=== PATIENT | male | born 1930 | race Caucasian/White ===

== ENCOUNTER 2016-06-13 22:59 | Inpatient (IN) | payer MEDICARE, OTHER ==
[~2016-06-13] VITALS: Ht 182.9 cm; Wt 68.0 kg
--- NOTE | ~2016-06-13 | OR ---
ADMIT: 06/13/2016 RM/LOC: 505 [facility] MR#: [id number] 2620 [facility] [address] [place], [place] [address] SADIE REJI BRADFORD [address] [place] [address] Operative/Delivery Room Report SEX: M AGE: 86 : 1930 SURGERY DATE: 06/23/2016 SURGEON: Ra Mancuso MD PREOPERATIVE DIAGNOSES: 1. Dysphagia. 2. Malnutrition. POSTOPERATIVE DIAGNOSES: 1. Dysphagia. 2. Malnutrition. PROCEDURE: Esophagogastroduodenoscopy with 20-Emirati percutaneous endoscopic gastrostomy tube insertion. ANESTHESIA: IV general. DESCRIPTION OF PROCEDURE: The patient was taken to the endoscopy suite and placed supine on his hospital cart. IV sedation was established. The upper endoscope was advanced through the oropharynx into the esophagus without difficulty. The scope was pushed under visualization of the stomach. Air was used to insufflate the stomach. The pylorus was intubated, and the first and second portions of the duodenum appeared normal. The scope was withdrawn to the stomach. Transillumination in the mid body of the stomach was easily performed in the left upper quadrant. One-to-one finger indentation was possible at this site as well. This area was prepped and draped in the standard surgical fashion. Local anesthetic was used to anesthetize the skin and subcutaneous tissue at the site. A 6 mm incision was made at this site. The stomach was then accessed with a large gauge Angiocath under endoscopic visualization. Guidewire was advanced via the Angiocath and grasped with the endoscopic snare. The wire was withdrawn through the oropharynx. A 20-Emirati gastrostomy tube was advanced over the wire and then pulled through the abdominal wall without difficulty. The plastic apparatus, clamp, and cap were placed on the tubing. The upper endoscope was advanced through the oropharynx, through the esophagus to the stomach and showed appropriate position of the mushroom of the catheter in the mid body of the stomach with no evidence of bleeding. Air was suctioned as the scope was withdrawn. The patient tolerated the procedure in stable condition and transferred to recovery. Ra Mancuso MD/ valente JOB #: [id number] CC: Rayo Hobbs, Attending Physician Rayo Hobbs, Family Physician
--- NOTE | 2016-06-14 04:20 | ER ---
ADMIT: 06/13/2016 RM/LOC: 505 [facility] MR#: [id number] [address] [facility] [address] [place], [place] [address] REJI NOEL [address] [place] [address] Emergency Room Report SEX: M AGE: 86 : 1930 DATE: 06/13/2016 CHIEF COMPLAINT: Left hip fracture. HISTORY OF PRESENT ILLNESS: The patient is an 86-year-old gentleman who lives at a nursing facility in [place], who states that he was walking at the facility today, dropped his lollipop and bent over to pick it up, subsequently lost his balance, fell backwards onto his left side. He had immediate pain in his left hip and was unable to get up and he was transferred to the [facility]. X-rays were done, which revealed a left intertrochanteric hip fracture. His only complaint was pain in his left hip and some in his left shoulder. He also had his left shoulder x-ray at the outside facility, which showed no fracture, and he had a CBC and BMP done, which were unremarkable. That facility spoke to Dr. Chavarria, our orthopedic surgeon on this evening and he was transferred to our facility. The patient has no other complaints at this time. REVIEW OF SYSTEMS: Ten-point review of systems is done and otherwise negative except as in HPI. PAST MEDICAL HISTORY: Significant for prostate cancer, high cholesterol, anemia, hypertension, chronic kidney disease, Parkinson's, ichthyosis, second degree AV block, glaucoma. PAST SURGICAL HISTORY: Had an ablation for what sounds like SVT. MEDICATIONS: See nurse's note. ALLERGIES: SEE NURSE'S NOTE. SOCIAL HISTORY: The patient used to smoke, but quit many years ago. Denies any drug or alcohol use. He lives in a mcc. PHYSICAL EXAMINATION: See T-sheet. LABORATORY DATA: Outside labs were reviewed. X-ray, did an AP and lateral x- ADMIT: 06/13/2016 RM/LOC: 505 [facility] MR#: [id number] [address] [address] REJI NOEL [address] [place] [address] Emergency Room Report SEX: M AGE: 86 : 1930 ray of patient's left hip as he did not come with a lateral film and it does demonstrate an intertrochanteric impacted left proximal femur/hip fracture. EMERGENCY DEPARTMENT COURSE: The patient's pain was fairly well controlled in the emergency department, was not requesting any pain medications. I spoke to Dr. Chavarria, who will be involved with the care of the patient, and I spoke to Dr. Hobbs, who will be admitting the patient. DIAGNOSES: 1. Left intertrochanteric hip fracture. 2. Left shoulder pain. 3. Parkinson's. Herberth Fitch MD/ valente JOB #: [id number] CC: Rayo Hobbs MD, Attending Physician Rayo Hobbs MD, Family Physician
--- NOTE | 2016-06-15 14:01 | HP ---
ADMIT: 06/13/2016 RM/LOC: [address] [facility] MR#: [id number] [address] [facility] [address] [place], [place] [address] REJI NOELJTBHARAT [address] [place] [address] History and Physical SEX: M AGE: 86 : 1930 DATE OF SERVICE: CHIEF COMPLAINT: Fall with left hip pain and hip fracture. HISTORY OF PRESENT ILLNESS: This is an 86-year-old gentleman, who is in a skilled nursing. His usual medical problems have been very stable and consist of a history of an AV block with SVT ablation, and Parkinson's disease with some orthostasis. Apparently, he had a ground level fall onto his left side and fractured his left hip. He did fall on his left shoulder with some pain there. X-rays from the outside facility are normal, showing no fracture. He was initially seen in [place]. Again, no active medical problems, but orthopedist's wished for me to admit for the hip fracture they will be doing surgery. PAST MEDICAL HISTORY: Includes: 1. Prostate cancer. 2. Hyperlipidemia. 3. Hypertension. 4. Chronic kidney disease. 5. Parkinson's. 6. History of an AV block. 7. History of SVT ablation. 8. Glaucoma. SOCIAL HISTORY: History of smoking, but none currently, quit many years ago. No alcohol. Lives in skilled nursing. FAMILY HISTORY: Reviewed but noncontributory. is in the room with him today. REVIEW OF SYSTEMS: Other complete review of systems obtained and negative except as above. PHYSICAL EXAMINATION: VITAL SIGNS: Temperature 97.0, pulse 63, respirations 16, blood pressure 130/69, oxygen saturation 92% on 2 L oxygen by nasal cannula. GENERAL: This is an elderly-appearing, 86-year-old gentleman, in no apparent distress. HEENT: Head is normocephalic and atraumatic. His pupils equal, round, and reactive to light and accommodation. He has glasses on. He prefers to keep one eye closed, although, it is early in the morning and I turned the lights on him. Throat is little bit dry, but clear. NECK: Supple. Trachea midline. Thyroid not palpable. HEART: Diminished, but regular rate and rhythm. LUNGS: Diminished bilaterally, but clear. ABDOMEN: Scaphoid, soft, without any tenderness. EXTREMITIES: Left lower extremity is externally rotated and shortened. Skin on his feet is extremely dry. MUSCULOSKELETAL: Changes of his feet include severe hammertoes bilaterally. ADMIT: 06/13/2016 RM/LOC: [address] [facility] MR#: [id number] [address] [address] REJI NOEL [address] [place] [address] History and Physical SEX: M AGE: 86 : 1930 He has dry crusty lesions on his feet bilaterally. He can move his upper extremities, however, he has bradykinesia and soft voice. LABORATORY DATA: White count 10.0, hemoglobin 13.0, and platelets of 140. BNP 141. Potassium 4.6, chloride 110, BUN 23, creatinine 1.2 for a GFR 55. X- ray showed left femoral neck angulated displaced fracture. ASSESSMENT: 1. Hip pain. 2. Left femoral neck fracture. 3. History of AV block with SVT ablation. 4. Parkinson's. 5. Ground level fall. PLAN: We will get an EKG for further evaluation of his heart rhythm. He will proceed with surgery as his mortality without surgery is much higher than with at this point. He has no active chest pain. No active shortness of breath. His functional status prior was quite diminished, so where as this is not an ideal situation. He has no active medical problems that would make surgery unadvisable at this time. He has a little bit hypoxic, and we will get a chest x-ray for further evaluation of that as well. Rayo Hobbs MD/ valente JOB #: [id number] CC: Rayo Hobbs, Attending Physician Rayo Hobbs, Family Physician
--- NOTE | 2016-06-20 15:16 | CO ---
ADMIT: 06/13/2016 RM/LOC: 505 [facility] MR#: [id number] [address] [place] [address] [place], [place] [address] REJI NOEL [address] [place] [address] Consultation SEX: M AGE: 86 : 1930 DATE OF CONSULTATION: 06/16/2016 ATTENDING PHYSICIAN: Rayo Hobbs CONSULTING PHYSICIAN: Marla Sood APRN TIME IN: 1430 hours. TIMEOUT: 1540 hours. REASON FOR CONSULTATION: Supportive care consultation was requested by Dr. Hobbs for discussion of goals for care specifically in regard to feeding tube. HISTORY OF PRESENT ILLNESS: Mr. Noel is a very pleasant 86-year-old male with history of Parkinson disease. It sounds like he has had some progressive decline over the course of the past year specifically. He did move to an assisted living facility from home back in March of 2016 per his 's report. He unfortunately sustained a fall on June 13 that resulted in a left hip fracture. He was transferred to [facility] for further treatment. Orthopedics did see the patient on June 14. He underwent a left hip short trochanteric fixation nail. The plan was actually for him to leave today to go to rehab back near his hometown of [place]; however, nursing noted that he was having swallowing issues; therefore, Speech Therapy was ordered to evaluate. He underwent an MBS today, which he unfortunately failed. At this time, the recommendation is for the patient to be n.p.o. Due to his complexities, supportive care consultation was requested to discuss feeding tube and goals for care. In terms of advanced directives, the patient's states that he does have a living will and healthcare [id number] paperwork. The patient's Pricilla Noel whose phone number is [phone] is his decision maker for medical purposes. Additionally, they have 4 children, who are involved with his care as well. He is a full code. Symptomatically, the patient denies complaints. He is very weak and tired. He sleeps the majority of our discussion. He denies pain or other discomfort. PAST MEDICAL HISTORY: Prostate cancer, hyperlipidemia, hypertension, chronic kidney disease, Parkinson disease, history of AV block, history of SVT ablation, and glaucoma. ALLERGIES: THE PATIENT HAS NO KNOWN MEDICATION ALLERGIES. CURRENT MEDICATIONS: Please see the patient's MAR for specific routes and dosages. His current medications are as follows: 1. Lopid. 2. Xarelto. 3. Senokot. ADMIT: 06/13/2016 RM/LOC: 505 [facility] MR#: [id number] [address] [address] REJI NOEL [address] [place] [address] Consultation SEX: M AGE: 86 : 1930 4. Lacri-Lube. 5. Lipitor. 6. Parlodel. 7. Mirapex. 8. Sinemet. 9. Benadryl. 10.Maalox. 11.Fleet Enema. 12.Milk of magnesia. 13.Phenergan. 14.Compazine. 15.Zofran. 16.Morphine. 17.Hydrocodone. 18.Tylenol. 19.Multivitamin. 20.Timoptic. 21.ProAmatine. 22.Lotemax. 23.Reglan. 24.Dulcolax. 25.Colace. 26.Nitrostat. SOCIAL HISTORY: The patient is . He has adult children. He is retired. He was living in assisted living. He does have a history of smoking, but does not currently smoke. He does not use alcohol. FAMILY HISTORY: Reviewed and noncontributory. FUNCTIONAL REVIEW: Prior to his hospital stay, he was living at an assisted living. He could get around with a Parkinson's walker. He did need some assistance with ADLs. It sounds like he could do some of his own dressing. His palliative performance scale prior to admission was around 50% to 60%. Currently, he is in bed. He is total care. Intake is minimal. He is very sleepy. His current palliative performance scale is 20% to 30%. REVIEW OF SYSTEMS: A 10-point review of systems was completed, and other than those pertinent positives and negatives mentioned the HPI, it is negative. PHYSICAL EXAMINATION: GENERAL: The patient is examined in the bed. He is lethargic. He is in no acute distress. VITAL SIGNS: Temperature 97.4, pulse 62, respirations 20, blood pressure 161/83, and oxygen 98% on 1 L per nasal cannula. HEENT: Head is normocephalic. Pupils are 3 mm bilaterally and brisk. Oral mucosa slightly dry. His dentures are loose fitting. He does have audible secretions at the back of his throat. NECK: Supple. ADMIT: 06/13/2016 RM/LOC: 505 [facility] MR#: [id number] [address] [address] REJI NOEL [address] [place] [address] Consultation SEX: M AGE: 86 : 1930 RESPIRATORY: Respirations are equal, nonlabored at rest. LUNGS: Diminished bilaterally in the bases. CARDIOVASCULAR: Rate rhythm regular without murmurs, rubs, or gallops. No edema noted. GASTROINTESTINAL: Soft, nontender. Bowel sounds are hypoactive. I do not see a bowel movement documented since admission. MUSCULOSKELETAL: Generalized weakness. INTEGUMENTARY: Skin turgor is fair. His skin is fragile. NEUROLOGIC: Fatigued, but oriented x3. He will follow sleep very easily during our conversation though and does not participate much. PSYCHIATRIC: Calm and cooperative. IMPRESSION: 1. Physical debility. 2. Dysphagia. 3. Lethargy. 4. Fatigue. 5. Malaise. 6. Left hip fracture status post nailing. 7. Parkinson disease. 8. History of atrioventricular block. 9. History of hypertension. 10.Palliative care. 11.The patient is a full code. PLAN OF TREATMENT: 1. I was able to have a long talk with the patient's spouse and the patient himself at the bedside. They also have 2 friends, who are present for discussion during my visit. We reviewed his overall status and goals for the time ahead. The patient's states that he was actually doing fairly well before falling and breaking his hip. We did discuss the outcomes of Speech Therapy's modified barium swallow today, and she is initially confused on the outcome of this test. She states that she is under the impression that he could eat whatever he wanted. I again reviewed the outcome of the MBS with the patient's and emphasized that he cannot tolerate any oral intake at this time due to his risk for aspiration. I did review his high risk for ongoing issues with aspiration secondary to his pneumonia and the recent stresses that he has been through in terms of surgery and anesthesia. She verbalizes understanding of this. We did review the burden versus benefit of an NG tube for short term tube feeding. At this time, she would like to proceed with the feeding tube through the nose on a short-term basis to see if he can regain any strength and swallow function while working with Speech Therapy in the days ahead. She is aware that the tube in the nose is short-term option and that he cannot go anywhere with this type of feeding tube. We did discuss long-term feeding tube placement such as a PEG tube, and the implications that would have for the patient. She understands that if his swallow does not improve in the days ahead that a ADMIT: 06/13/2016 RM/LOC: 505 [facility] MR#: [id number] 2620 [facility] [address] [place] [address] REJI NOEL [address] [place] [address] Consultation SEX: M AGE: 86 : 1930 decision will need to be made regarding long-term tube feeding. I very briefly reviewed the concept of pleasure eating and the hospice philosophy that often goes with this in the event that he continues to aspirate, and they do not wish to proceed with long-term tube feeding. At the end of the conversation, the patient's does verbalize understanding of our discussion and understands that we will proceed with the NG tube through the nose today. She agrees to ongoing discussions in the time ahead pending his status. I also was able to call the patient's daughter, Alexia Koehler, to update her on the discussion that I had with her mother and father and the plans for the feeding tube through the nose. She is supportive of this decision and also understands that should he not improve in terms of swallow that we will have to have a discussion regarding long-term feeding tube placement. 2. I did very briefly review code status with the patient's , and she states that the patient would want to go through resuscitative measures; however, he would not want to be on a machine long-term if it were to come to that. We will continue to discuss this in the time ahead pending his status. We would like to thank Dr. Hobbs for the invitation to participate in this patient's care. Total consultation time was 70 minutes from 1430 hours to 1540 hours with 40 minutes from 1445 hours to 1525 hours spent [id number] with the patient and his family or on the phone with his family discussing goals for care and providing counseling and support. We will continue to follow along. Both Dr. Hobbs and nursing were updated on the plan of care. Marla Sood APRN/ valente JOB #: [id number] CC: Rayo Hobbs, Attending Physician Rayo Hobbs, Family Physician
--- NOTE | 2016-06-22 20:44 | CO ---
ADMIT: 06/13/2016 RM/LOC: 505 [facility] MR#: [id number] [address] [facility] [address] [place], [place] [address] REJI NOEL [address] [place] [address] Consultation SEX: M AGE: 86 : 1930 DATE OF CONSULTATION: 06/21/2016 ATTENDING PHYSICIAN: Rayo Hobbs CONSULTING PHYSICIAN: Ra Mancuso MD ADDENDUM: Mr. Noel was seen in consultation for PEG tube insertion for management of nutritional supplementation during his recovery process. I discussed the detailed risks of that with Reji today and he wishes to proceed. I have reviewed Syd George's full documentation of consult. I am in agreement with his documented history, exam findings, impression, and plan. Ra Mancuso MD/ jeffreyl JOB #: [id number] CC: Rayo Hobbs, Attending Physician Rayo Hobbs, Family Physician
[2016-06-26] MEDS ORDERED: MIRAPEX DPS0.25 MG PO (14:08)
[2016-06-26] MEDS ORDERED: [UNRECOGNIZED DRUG - OTHER] PO (14:09)
[2016-06-26] MEDS ORDERED: DUONEB DPS3 ML IH (14:09)
[2016-06-26] MEDS ORDERED: THERAPEUTIC MUL1 TAB PO (14:09)
[2016-06-26] MEDS ORDERED: SINEMET 25-2501 EACH PO (14:09)
[2016-06-26] MEDS ORDERED: SENOKOT S1 TAB PO (14:09)
[2016-06-26] MEDS ORDERED: AUGMENTIN 250250 MG PO (14:10)
[2016-06-26] MEDS ORDERED: LOTEMAX5 ML OU (14:11)
[2016-06-26] MEDS ORDERED: LACRI-LUBE3.5 GM OU (14:11)
[2016-06-26] MEDS ORDERED: TEARS NATURAL D15 ML OU (14:11)
[2016-06-26] MEDS ORDERED: LIPITOR DPS20 MG GT (14:12)
[2016-06-26] MEDS ORDERED: PRO-AMATINE2.5 MG GT (14:12)
[2016-06-26] MEDS ORDERED: TIMOPTIC 0.5% DP5 ML OU (14:12)
[2016-06-26] MEDS ORDERED: LOPID DPS600 MG GT (14:12)
[2016-06-26] MEDS ORDERED: HYDROCODON-ACE1 EAC4 PO (14:13)
[2016-06-26] MEDS ORDERED: LOVENOX DP40 MG/0.4 SQ (14:13)
--- NOTE | 2016-06-30 11:05 | CO ---
ADMIT: 06/13/2016 RM/LOC: 505 [facility] MR#: [id number] 2620 [facility] [address] [place], [place] [address] REJI NOEL [address] [place] [address] Consultation SEX: M AGE: 86 : 1930 DATE OF CONSULTATION: 06/20/2016 ATTENDING PHYSICIAN: Rayo Hobbs CONSULTING PHYSICIAN: Ra Mancuso MD REASON FOR CONSULTATION: Dysphagia and failed barium swallow study. HISTORY OF PRESENT ILLNESS: Reji is a very pleasant 86-year-old male with history of Parkinson disease who has been admitted to the hospital because he suffered a fall at his residence resulting in a left hip fracture. He has thus undergone surgery for this and has been recovering in the hospital since. On Thursday, approximately 6 days ago, the patient developed some dysphagia where he had inability of swallowing his medications with water. As a result, Primary Medicine looked into this, achieved a barium swallow study to which he failed and recommended n.p.o. at this time. It is to my understanding that he has difficulty swallowing medications, liquids, and solids. The patient denies any pain, nausea, vomiting, or any bowel issues. He denies ever having prior upper endoscopy but he has colonoscopy less than 10 years ago. He does note to have a hiatal hernia. PAST MEDICAL HISTORY: Significant for Parkinson disease, hyperlipidemia, hiatal hernia, hypertension, prostate cancer, chronic kidney disease, AV block, and glaucoma. PAST SURGICAL HISTORY: 1. Bilateral open inguinal hernia repairs. 2. SVT ablation. 3. Defibrillator placement. ALLERGIES: NO KNOWN DRUG ALLERGIES. MEDICATIONS: Well documented in chart. FAMILY HISTORY: Noncontributory. The patient denies any family history of any bowel issues. SOCIAL HISTORY: Negative for tobacco, alcohol, or illicit drug use. REVIEW OF SYSTEMS: CONSTITUTIONAL: The patient denies any fever, chills, or night sweats. MUSCULOSKELETAL: Patient ambulates with a walker. Otherwise denies any ambulation problems, joint pain, neck stiffness, or back issues. The rest of comprehensive 10-point review of systems was performed and all other systems are negative. PHYSICAL EXAMINATION: GENERAL: The patient is in no acute distress. He is alert and oriented. HEENT: Head is normocephalic and atraumatic. EOMs are intact. Conjunctivae ADMIT: 06/13/2016 RM/LOC: 505 [facility] MR#: [id number] [address] [address] REJI NOEL [address] [place] [address] Consultation SEX: M AGE: 86 : 1930 free of icterus, erythema, or pallor. Pinnae free of deformities. Nose, midline. No tracheal deviation. Increased saliva in his mouth with inability to swallow noted upon inspection. NECK: Supple. SKIN: Negative for jaundice, clubbing, edema, pallor, or cyanosis. LUNGS: Normal respiratory effort. HEART: Regular rate and rhythm. Distal pulses intact. ABDOMEN: Soft, nondistended, and nontender. NEURO: Grossly intact. ASSESSMENT: Dysphagia. PLAN: The plan is to have the patient undergo EGD with PEG tube placement on Thursday performed by Dr. Mancuso. I discussed risks, alternatives, benefits, and complications of endoscopy with the patient and his family who were present during my whole assessment. They are in agreement of this plan, had all their questions answered and would like to proceed. I will get him on the schedule, get him consented for the procedure. His Xarelto has been discontinued but he is on Lovenox, hold Lovenox prior and accomplish this Thursday. Thank you for the consultation of this patient. PAUL Pearson / Ra Mancuso MD / valente JOB #: [id number] CC: Rayo Hobbs, Attending Physician Rayo Hobbs, Family Physician
--- NOTE | 2016-07-01 06:50 | DS ---
ADMIT: 06/13/2016 RM/LOC: 505 [facility] MR#: [id number] [facility] [address] [place], [place] [address] REJI NOELCHANCE [address] [place] [address] General Discharge Summary SEX: M AGE: 86 : 1930 ADMISSION DATE: 06/13/2016 DISCHARGE DATE: 06/25/2016 FINAL DIAGNOSES: 1. Hip fracture status post surgery. 2. Dysphagia. 3. Malnutrition. 4. Parkinson disease. 5. Aspiration pneumonia. REASON FOR ADMISSION: This is an 86-year-old gentleman with known Parkinson's, had a fall and sustained a hip fracture. Surgery for his hip was done on 06/14 without incident. After the patient had his surgery, he had some low pressures. Midodrine was started and he seemed to do much better even after some fluids as well. He had some known orthostatic hypotension. He had some choking on food on the . Speech Therapy evaluation along with modified barium swallow showed that he had severe difficulties, so therefore we had Supportive Care see him. They felt that temporary feeding tube would be reasonable. He had an NG placed and he did fine with this. I did treat him for his weakness, postop care, and dysphagia. Ultimately for longer term benefits, he felt they would want a PEG tube, so this was placed instead, and after that, he continued to do fine. He was still quite weak but gradually did improve throughout his time in the hospital. By the , he had been accepted into a skilled care facility at [facility] in [place], so this was arranged and he was discharged up there. So, he was set up to [place] and rehab with followup with Dr. Chavarria per their schedule. DISCHARGE MEDICATIONS: 1. Mirapex 0.25 mg t.i.d. 2. Parlodel 1.25 mg b.i.d. 3. Senokot S one tab b.i.d. 4. Sinemet 25/250 mg one q.i.d. 5. PreserVision one b.i.d. 6. DuoNebs q.i.d. 7. Augmentin 875 mg b.i.d. for eight days. 8. Lacri-Lube 0.5 inch to lids at bedtime. 9. Lotemax one drop OU daily. ADMIT: 06/13/2016 RM/LOC: 505 [facility] MR#: [id number] [facility] [address] [place], [place] [address] REJI NOEL [address] [place] [address] General Discharge Summary SEX: M AGE: 86 : 1930 10.Natural Tears two drops OU q.i.d. and p.r.n. 11.Timoptic eyedrops two drops OU daily. 12.Lipitor 20 mg daily. 13.Lopid 600 mg daily. 14.Primatene . 15.Lovenox 40 mg daily subcutaneous until weightbearing. 16.Hydrocodone 5/325 one q.4 p.r.n. Tube feeding per Nutrition recommendations. He should have a BMP in 1 week to assure he is getting enough free water. He should have PT, OT, and Speech Therapy and see Dr. Chavarria in [place] on June 26, see his PCP in 1 week's time. Rayo Hobbs MD/ valente JOB #: [id number] CC: Rayo Hobbs MD, Attending Physician Rayo Hobbs MD, Family Physician
--- NOTE | 2016-07-01 12:25 | OR ---
ADMIT: 06/13/2016 RM/LOC: 505 [facility] MR#: [id number] [id number] [place], [place] [address] REJI NOELJTBHARAT [address] [place] [address] Operative/Delivery Room Report SEX: M AGE: 86 : 1930 SURGERY DATE: 06/14/2016 SURGEON: Herberth Chavarria MD PREOPERATIVE DIAGNOSIS: Left hip intertrochanteric/basilar neck fracture. POSTOPERATIVE DIAGNOSIS: Left hip intertrochanteric/basilar neck fracture. PROCEDURE: Left hip short trochanteric fixation nail. ANESTHESIA: General. ESTIMATED BLOOD LOSS: 50 mL. COMPLICATIONS: None. CONDITION: Fair to recovery room. INDICATIONS: This patient is an 86-year-old male, lives in assisted living [place]. He fell yesterday in [place]. Injured his hip. He was seen in the Emergency Department. X-rays were obtained. He was found to have an intertrochanteric/basilar neck hip fracture. He was sent to [place] for definitive care and treatment. The patient did have some pain in his left shoulder. X-rays up in [place] were report as negative. We discussed him and his the injury as well as treatment options. At this point, they wanted to proceed with surgical treatment. We talked about the trochanteric fixation nail. We discussed procedure as well as risks, benefits with them at length. Questions were answered and they did agree to proceed. DESCRIPTION OF PROCEDURE: After informed consent was obtained, the patient was taken to the operating room, placed on the operative table in supine position. General anesthetic was administered. The patient then was transferred to the fracture table. Right lower extremity in the well leg fischer, left lower extremity in the traction boot. We were able to get a good reduction of the fracture using the fracture table. We checked this on fluoroscopy. Once we had an adequate reduction, the left hip was then prepped and draped in usual sterile fashion. Once this was completed, we used fluoroscopy to identify the tip of the greater trochanter. We made an incision just proximal to this through the skin and subcutaneous tissues. Hemostasis maintained using Bovie electrocautery. We then split the deep fascia. I split this bluntly down to the tip of the greater trochanter. We placed a guidewire into the proximal femur through the tip of the greater trochanter. We checked this position on both AP and lateral views fluoroscopically and this was noted to be in good position. We then over drilled with the 17 mm reamer with soft tissue guide. Once this was completed, we elected to use an 11 mm diameter nail with 130-degree neck angle. We placed this into the proximal femur. Once this was seated in good ADMIT: 06/13/2016 RM/LOC: 505 [facility] MR#: [id number] [address] [address] REJI NOEL [address] [place] [address] Operative/Delivery Room Report SEX: M AGE: 86 : 1930 position to try to keep the helical blade little bit inferior in the neck. We placed the guide for the helical blade. We made a second incision distally, placed the guide onto the lateral cortex of the femur, and placed a guidewire into the femoral head. This was noted be in good position in both AP and lateral views, pretty much in the center on the lateral view and inferior on the AP view. Once this was completed, we then measured and elected to use 105 helical blade. Reamed the lateral cortex with the lateral cortex reamer, followed by the step reamer set to 105. Once this was completed, the 105 helical blade was placed over the guidewire and seated into position using light mallet blows. Once this was completed, everything looked good on both AP and lateral views. We then engaged in the proximal locking mechanism using the screwdriver. Once this was completed, the guide for the helical blade as well as the guidewire were removed. AP and lateral fluoroscopic views were obtained. Things were noted be in good reduction and helical blade was in good position here. We then placed the guide for the distal locking screw through a separate stab incision distally and put this on the lateral cortex of the femur. Drilled measured and placed a 44 mm distal locking screw. Once this was completed, the nail inserting guide was removed. We took final AP and lateral fluoroscopic views showing the TFN was in excellent position and there was good reduction on both AP and lateral views here. Once this was completed, the wounds were copiously irrigated. The deep fascia was reapproximated in the proximal wound using 0 Vicryl in a qrukss-ok-hksod fashion. The wounds were once again copiously irrigated. Subcutaneous tissues and all 3 wounds were closed in layers using 2-0 Vicryl in a simple interrupted fashion and the skin was closed using skin marbin. A sterile compressive dressing was then applied consisting of Xeroform, plain gauze, ABDs, Medipore tape. The patient was then transferred back to the hospital bed and to recovery room in fair condition. Herberth Chavarria MD/ valente JOB #: [id number] CC: Rayo Hobbs, Attending Physician Rayo Hobbs, Family Physician
--- NOTE | 2016-07-01 12:25 | CO ---
ADMIT: 06/13/2016 RM/LOC: 505 [facility] MR#: [id number] [id number] [place], [place] [address] REJI NOEL [address] [place] [address] Consultation SEX: M AGE: 86 : 1930 DATE OF CONSULTATION: 06/14/2016 ATTENDING PHYSICIAN: Rayo Hobbs CONSULTING PHYSICIAN: Herberth Chavarria MD REASON FOR CONSULTATION: Left hip fracture. HISTORY OF PRESENT ILLNESS: The patient is an 86-year-old male with history of Parkinson's disease. He was ambulating yesterday when he went over to pick something up, lost his balance and fell onto his left side with immediate pain in his left hip, and was unable to get up, so was transferred to [facility]. X-rays were obtained, which showed a left hip what appeared to be an intertrochanteric basilar neck fracture here. He was having some left shoulder pain as well. Apparently, left shoulder x-rays done at an outside facility which were apparently negative for any fractures. He was then referred to [facility] for definitive care and treatment of his left hip fracture. PAST MEDICAL HISTORY: Significant for: 1. Prostate cancer. 2. Elevated cholesterol. 3. Anemia. 4. Hypertension. 5. Chronic kidney disease. 6. Parkinson's. 7. Ichthyosis. 8. Second-degree AV block. 9. Glaucoma. MEDICATIONS: Please see the MAR. ALLERGIES: NO KNOWN DRUG ALLERGIES. SOCIAL HISTORY: The patient used to smoke, quit many years ago. Denies any drug or alcohol use. REVIEW OF SYSTEMS: Noncontributory. PHYSICAL EXAMINATION: HEENT: As per Dr. Hobbs's preoperative medical evaluation. HEART: As per Dr. Hobbs's preoperative medical evaluation. LUNGS: As per Dr. Hobbs's preoperative medical evaluation. ABDOMEN: As per Dr. Hobbs's preoperative medical evaluation. EXTREMITIES: Examination of the left lower extremity, does appear to be short and externally rotated. No pain with any active range of motion of the hip. He is able to move his foot up and down. Appears to be otherwise distally and neurovascularly intact. ADMIT: 06/13/2016 RM/LOC: 505 [facility] MR#: [id number] [id number] [place], [place] [address] REJI NOEL [address] [place] [address] Consultation SEX: M AGE: 86 : 1930 IMAGING: X-rays of the hip obtained here at the hospital, show a varus angulated fracture at the base of neck intertrochanteric region. I do not see any other fractures about the hip on the x-rays. ASSESSMENT: Left hip intertrochanteric/basilar neck hip fracture. The patient was having some pain in the left shoulder, but no fractures noted here. He does have history of Parkinson's. PLAN: At this point, we talked to the patient and his about his injury as well as treatment options. At this point, they have elected for surgical treatment. I told we would treat this using a trochanteric fixation nail. We discussed procedure as well as risks and benefits with him. Questions were answered and they agreed to proceed. Dr. Hobbs will see the patient for preoperative medical clearance. Herberth Chavarria MD/ valente JOB #: [id number] CC: Rayo Hobbs, Attending Physician Rayo Hobbs, Family Physician
== END 2016-06-25 14:40 | DRG 480 ==
LOC: ER 22:59 → 5MS 23:35
PROVIDERS: ADMIT Internal Medicine
DX: S72.142A Displaced intertrochanteric fracture of left femur, initial encounter for closed fracture (principal); J69.0 Pneumonitis due to inhalation of food and vomit; E44.0 Moderate protein-calorie malnutrition; R13.10 Dysphagia, unspecified; G20 Parkinson's disease; D63.1 Anemia in chronic kidney disease; I12.9 Hypertensive chronic kidney disease with stage 1 through stage 4 chronic kidney disease, or unspecified chronic kidney disease; W18.30XA Fall on same level, unspecified, initial encounter; Y92.129 Unspecified place in nursing home as the place of occurrence of the external cause; I95.1 Orthostatic hypotension; R09.02 Hypoxemia; K44.9 Diaphragmatic hernia without obstruction or gangrene; E78.5 Hyperlipidemia, unspecified; N18.3 Chronic kidney disease, stage 3 (moderate); L85.0 Acquired ichthyosis; H40.9 Unspecified glaucoma; Z87.891 Personal history of nicotine dependence; Z85.46 Personal history of malignant neoplasm of prostate; Z95.810 Presence of automatic (implantable) cardiac defibrillator; Z66 Do not resuscitate